=== PATIENT | male | born 1950 | race Caucasian/White ===

== ENCOUNTER → 2020-03-14 | Outpatient (CLI) | payer MEDICARE, BC, OTHER | LOC: LAB 09:31 | DX: Z01.812 Encounter for preprocedural laboratory examination (principal); Z20.828 Contact with and (suspected) exposure to other viral communicable diseases ==

== ENCOUNTER → 2020-03-17 | Day surgery (SDC) | payer MEDICARE, BC, OTHER | END | disposition home or self-care (01) | LOC: MSO 09:08 | DX: R19.7 Diarrhea, unspecified (principal); K57.30 Diverticulosis of large intestine without perforation or abscess without bleeding; K63.89 Other specified diseases of intestine; Z86.010 Personal history of colon polyps; K22.2 Esophageal obstruction; K21.9 Gastro-esophageal reflux disease without esophagitis; Z79.899 Other long term (current) drug therapy; Z79.82 Long term (current) use of aspirin | CPT/HCPCS: 00813; C1769; J2704; J7120 ==